=== PATIENT | female | born 1975 | race Caucasian/White ===

== ENCOUNTER 2020-09-16 21:22 | Emergency (ER) | payer OTHER ==
[~2020-09-16] VITALS: Ht 165.1 cm; Wt 59.0 kg
[2020-09-16 23:25] LABS: Calcium, Ionized (POC) 1.04 mmol/L (1.10-1.46); Chloride (POC) 113 mmol/L (98-108); Glucose (ISTAT POC) 100 mg/dL (70-99); Hemoglobin (POC) 14.6 g/dL (12.0-16.0); Potassium (POC) 3.9 mmol/L (3.5-5.5); Sodium (POC) 145 mmol/L (135-148); Total CO2 (POC) 18 mmol/L (21-32)
[2020-09-17] MEDS ORDERED: IBUP400 PO (00:55)
[2020-09-17] MEDS ORDERED: Percocet 5-3251 EACH PO (00:55)
== END 2020-09-17 01:30 | disposition home or self-care (01) ==
LOC: ER 21:22
PROVIDERS: Emergency Medicine
DX: S42.322A Displaced transverse fracture of shaft of humerus, left arm, initial encounter for closed fracture (principal); S60.222A Contusion of left hand, initial encounter; V48.5XXA Car driver injured in noncollision transport accident in traffic accident, initial encounter; Y92.410 Unspecified street and highway as the place of occurrence of the external cause
CPT/HCPCS: 24505; 70450; 71045; 73060; 73120; 80047; 85014; 96374-59; 96375-59; 99285-25; A9270; J2405; J3010